=== PATIENT | female | born 1935 | race Caucasian/White ===

== ENCOUNTER 2018-02-15 13:40 | Inpatient (IN) | payer OTHER ==
[~2018-02-15] VITALS: Ht 157.5 cm; Wt 65.9 kg
[2018-02-15 13:45] VITALS: Ht 157.5 cm; Wt 65.9 kg
[2018-02-15 14:55] LABS: UA SPECIFIC GRAVITY 1.015 (1.005-1.035); microscopic required? YES; urine erythrocyte TRACE (NEGATIVE)
[2018-02-15 15:45] LABS: PLATELET COUNT 208 x10^3mcL (130-400); RED CELL DISTRIBUTION WIDTH 13.2 % (11.5-14.5)
[2018-02-15 15:46] LABS: BASOPHIL % 0 % (0-2)
[2018-02-15 16:01] LABS: CK-MB 17.1 ng/mL (0-3.6)
[2018-02-15 16:24] LABS: GLUCOSE SERUM 56 mg/dL (74-106)
[2018-02-15 16:27] LABS: ALBUMIN 3.6 g/dL (3.4-5.0); ALKALINE PHOSPHATASE 57 U/L (46-116); ALT/SGPT 32 U/L (14-59); AST/SGOT 53 U/L (15-37); BILIRUBIN TOTAL 0.46 mg/dL (0.20-1.00); CALCIUM 10.1 mg/dL (8.5-10.1); CARBON DIOXIDE 31.7 mmol/L (21-32); CHLORIDE SERUM 97 mmol/L (98-107); CREATININE SERUM 1.2 mg/dL (0.6-1.0); POTASSIUM SERUM 3.8 mmol/L (3.5-5.1); SODIUM SERUM 127 mmol/L (136-145); TOTAL PROTEIN, SERUM 7.3 g/dL (6.4-8.2)
[2018-02-15] MEDS ORDERED: TRAMADOL HCL50 MG (16:55)
[2018-02-15] MEDS ORDERED: FUROSEMIDE20 MG PO (16:55)
[2018-02-15] MEDS ORDERED: TOPROL XL25 MG (16:56)
[2018-02-15] MEDS ORDERED: HYDROCHLOROTH12.5 M2 PO (16:56)
[2018-02-15] MEDS ORDERED: ALTACE10 MG PO (16:56)
[2018-02-15] MEDS ORDERED: PREDNISONE20 MG (16:57)
[2018-02-15] MEDS ORDERED: NOVOLOG MI10 U/0.11 SQ (16:58)
[2018-02-15] MEDS ORDERED: GABAPENTIN100 M2 PO (16:58)
[2018-02-15 17:29] LABS: MAGNESIUM 1.9 mg/dL (1.8-2.4); PHOSPHOROUS 3.9 mg/dL (2.5-4.9)
[2018-02-15 17:30] LABS: CHOLESTEROL/HDL RATIO 2.6
[2018-02-15 17:36] LABS: T3 TOTAL 0.84 ng/mL
[2018-02-15 17:38] LABS: FREE T4 0.94 ng/dL (0.76-1.46); T4(THYROXINE) 5.8 ug/dL (4.7-13.3)
[2018-02-15 18:13] VITALS: BP 131/70
[2018-02-15 21:17] VITALS: BP 119/63
[2018-02-16 05:13] VITALS: BP 111/65
[2018-02-16 06:50] LABS: CALCIUM 8.7 mg/dL (8.5-10.1); CARBON DIOXIDE 28.3 mmol/L (21-32); CHLORIDE SERUM 103 mmol/L (98-107); GLUCOSE SERUM 150 mg/dL (74-106); POTASSIUM SERUM 3.8 mmol/L (3.5-5.1); SODIUM SERUM 137 mmol/L (136-145)
[2018-02-16 06:56] LABS: BASOPHIL % 0.4 % (0-2); PLATELET COUNT 147 x10^3mcL (130-400); RED CELL DISTRIBUTION WIDTH 13.4 % (11.5-14.5)
[2018-02-16 09:07] VITALS: BP 101/56
[2018-02-16 13:04] VITALS: BP 120/44
[2018-02-16 17:24] VITALS: BP 127/78
[2018-02-16 20:43] VITALS: BP 109/63
[2018-02-17 05:10] VITALS: BP 133/57
[2018-02-17 06:07] LABS: CALCIUM 8.8 mg/dL (8.5-10.1); CARBON DIOXIDE 29.3 mmol/L (21-32); CHLORIDE SERUM 106 mmol/L (98-107); CREATININE SERUM 0.9 mg/dL (0.6-1.0); GLUCOSE SERUM 145 mg/dL (74-106); POTASSIUM SERUM 4.1 mmol/L (3.5-5.1); SODIUM SERUM 139 mmol/L (136-145)
[2018-02-17 06:20] LABS: BASOPHIL % 0.3 % (0-2); PLATELET COUNT 152 x10^3mcL (130-400); RED CELL DISTRIBUTION WIDTH 13.4 % (11.5-14.5)
[2018-02-17 09:00] VITALS: BP 132/63
[2018-02-17 12:54] VITALS: BP 123/81
== END 2018-02-17 16:55 | disposition home or self-care (01) | DRG 682 ==
LOC: ED 13:40 → DU 16:49
PROVIDERS: Emergency Medicine; Family Medicine
DX: N17.0 Acute kidney failure with tubular necrosis (principal); G93.41 Metabolic encephalopathy; M62.82 Rhabdomyolysis; E87.2 Acidosis; E87.1 Hypo-osmolality and hyponatremia; G90.8 Other disorders of autonomic nervous system; E11.649 Type 2 diabetes mellitus with hypoglycemia without coma; M19.90 Unspecified osteoarthritis, unspecified site; I10 Essential (primary) hypertension; R68.0 Hypothermia, not associated with low environmental temperature; Z53.29 Procedure and treatment not carried out because of patient's decision for other reasons; S09.90XA Unspecified injury of head, initial encounter; W19.XXXA Unspecified fall, initial encounter; E86.0 Dehydration; K44.9 Diaphragmatic hernia without obstruction or gangrene; R31.9 Hematuria, unspecified; Z79.4 Long term (current) use of insulin; Z79.899 Other long term (current) drug therapy; Z88.0 Allergy status to penicillin; Z88.2 Allergy status to sulfonamides; Y93.89 Activity, other specified; Y92.89 Other specified places as the place of occurrence of the external cause; Y99.8 Other external cause status
CPT/HCPCS: 82962; 83880; 84439; 97110-GP; 97116-GP; 97530-GP; 97535-GP; J1956; J3480; J3490; J7030; J7042; J7506; Q0092

== ENCOUNTER 2018-04-30 11:31 | Emergency (ER) | payer OTHER ==
[~2018-04-30] VITALS: Ht 154.9 cm; Wt 58.7 kg
[~2018-04-30 11:31] MED LIST: ALTACE10 MG PO; FUROSEMIDE20 MG PO; GABAPENTIN100 M2 PO; HYDROCHLOROTH12.5 M2 PO; NOVOLOG MI10 U/0.11 SQ; PREDNISONE20 MG; TOPROL XL25 MG; TRAMADOL HCL50 MG
[2018-04-30 11:56] VITALS: Ht 154.9 cm; Wt 58.7 kg
[2018-04-30 14:16] VITALS: BP 122/60
== END 2018-04-30 14:16 | disposition home or self-care (01) ==
LOC: ED 11:31
DX: S09.90XA Unspecified injury of head, initial encounter (principal); I10 Essential (primary) hypertension; E11.9 Type 2 diabetes mellitus without complications; Z90.710 Acquired absence of both cervix and uterus; W22.8XXA Striking against or struck by other objects, initial encounter; Y93.89 Activity, other specified; Y92.89 Other specified places as the place of occurrence of the external cause; Y99.8 Other external cause status
CPT/HCPCS: Q0162

== ENCOUNTER 2018-06-13 17:50 | Inpatient (IN) | payer OTHER ==
[~2018-06-13] VITALS: Ht 160 cm; Wt 59.9 kg
[2018-06-13 18:03] VITALS: Ht 160 cm; Wt 59.9 kg
[2018-06-13 19:10] LABS: BASOPHIL % 0.3 % (0-2); PLATELET COUNT 193 x10^3mcL (130-400); RED CELL DISTRIBUTION WIDTH 13.2 % (11.5-14.5)
[2018-06-13 19:19] LABS: CALCIUM 10.2 mg/dL (8.5-10.1); CARBON DIOXIDE 26.3 mmol/L (21-32); CHLORIDE SERUM 101 mmol/L (98-107); CREATININE SERUM 0.9 mg/dL (0.6-1.0); GLUCOSE SERUM 187 mg/dL (74-106); POTASSIUM SERUM 4.3 mmol/L (3.5-5.1); SODIUM SERUM 137 mmol/L (136-145)
[2018-06-13 19:23] LABS: ALBUMIN 3.5 g/dL (3.4-5.0); ALKALINE PHOSPHATASE 111 U/L (46-116); ALT/SGPT 22 U/L (14-59); AST/SGOT 17 U/L (15-37); BILIRUBIN TOTAL 0.5 mg/dL (0.20-1.00); TOTAL PROTEIN, SERUM 6.8 g/dL (6.4-8.2)
[2018-06-13 20:03] LABS: microscopic required? YES; urine erythrocyte NEGATIVE (NEGATIVE)
[2018-06-13] MEDS ORDERED: HYDROCHLOROTH12.5 M2 PO ×2 (20:06→22:41)
[2018-06-13] MEDS ORDERED: POTASSIUM CHLO10 MEQ (20:06)
[2018-06-13] MEDS ORDERED: ALTACE10 MG PO (20:07)
[2018-06-13] MEDS ORDERED: CLINDAMYCIN HC150 MG PO (20:07)
[2018-06-13] MEDS ORDERED: NAPROXEN250 MG PO (20:08)
[2018-06-13] MEDS ORDERED: PROCHLORPERAZIN10 MG PO (20:08)
[2018-06-13] MEDS ORDERED: MIRALAX17 GM/Dose (20:10)
[2018-06-13 21:08] VITALS: BP 161/91
[2018-06-13 21:41] LABS: CHOLESTEROL/HDL RATIO 3.1; MAGNESIUM 1.7 mg/dL (1.8-2.4); PHOSPHOROUS 3.8 mg/dL (2.5-4.9)
[2018-06-13 21:45] LABS: T3 TOTAL 1.46 ng/mL
[2018-06-13 21:48] LABS: FREE T4 1.15 ng/dL (0.76-1.46); FREE THYROXINE INDEX 2.7 ug/dL (1.4-4.5); T4(THYROXINE) 7.6 ug/dL (4.7-13.3)
[2018-06-13] MEDS ORDERED: PREDNISONE1 MG PO (22:37)
[2018-06-13] MEDS ORDERED: RAMIPRIL10 M1 PO (22:39)
[2018-06-13] MEDS ORDERED: KLOR-CON M1010 MEQ PO (22:42)
[2018-06-14 00:08] VITALS: BP 145/70
[2018-06-14 03:20] LABS: AMPHETAMINE QUAL UR NONE DETECTED (See below)
[2018-06-14 05:19] VITALS: BP 130/68
[2018-06-14 06:43] LABS: BASOPHIL % 0.2 % (0-2); PLATELET COUNT 159 x10^3mcL (130-400); RED CELL DISTRIBUTION WIDTH 13.2 % (11.5-14.5)
[2018-06-14 07:24] LABS: CALCIUM 9.3 mg/dL (8.5-10.1); CARBON DIOXIDE 29.3 mmol/L (21-32); CHLORIDE SERUM 104 mmol/L (98-107); CREATININE SERUM 0.8 mg/dL (0.6-1.0); GLUCOSE SERUM 127 mg/dL (74-106); MAGNESIUM 1.6 mg/dL (1.8-2.4); SODIUM SERUM 136 mmol/L (136-145)
[2018-06-14 09:10] VITALS: BP 130/63
[2018-06-14 17:16] VITALS: BP 131/66
[2018-06-14 20:43] VITALS: BP 115/70
[2018-06-15 05:46] VITALS: BP 126/67
[2018-06-15 07:32] LABS: BASOPHIL % 0.2 % (0-2); PLATELET COUNT 165 x10^3mcL (130-400); RED CELL DISTRIBUTION WIDTH 12.9 % (11.5-14.5)
[2018-06-15 08:11] LABS: CALCIUM 9.6 mg/dL (8.5-10.1); CARBON DIOXIDE 26.2 mmol/L (21-32); CHLORIDE SERUM 104 mmol/L (98-107); CREATININE SERUM 0.9 mg/dL (0.6-1.0); GLUCOSE SERUM 140 mg/dL (74-106); MAGNESIUM 1.6 mg/dL (1.8-2.4); POTASSIUM SERUM 3.9 mmol/L (3.5-5.1); SODIUM SERUM 137 mmol/L (136-145)
[2018-06-15 09:02] VITALS: BP 110/54
[2018-06-15 16:50] VITALS: BP 131/71
[2018-06-15 20:34] VITALS: BP 126/65
[2018-06-16 05:34] VITALS: BP 124/76
[2018-06-16 06:58] LABS: BASOPHIL % 0.3 % (0-2); PLATELET COUNT 165 x10^3mcL (130-400); RED CELL DISTRIBUTION WIDTH 13.1 % (11.5-14.5)
[2018-06-16 07:26] LABS: CALCIUM 9.7 mg/dL (8.5-10.1); CARBON DIOXIDE 25.2 mmol/L (21-32); CHLORIDE SERUM 105 mmol/L (98-107); CREATININE SERUM 0.8 mg/dL (0.6-1.0); GLUCOSE SERUM 138 mg/dL (74-106); MAGNESIUM 1.6 mg/dL (1.8-2.4); PHOSPHOROUS 3.9 mg/dL (2.5-4.9); POTASSIUM SERUM 4.1 mmol/L (3.5-5.1); SODIUM SERUM 138 mmol/L (136-145)
[2018-06-16 09:38] VITALS: BP 140/73
[2018-06-16] MEDS ORDERED: IBU800 M2 PO (13:31)
[2018-06-16 13:51] VITALS: BP 140/73
== END 2018-06-16 15:10 | disposition home or self-care (01) | DRG 551 ==
LOC: ED 17:50 → MU 20:08
PROVIDERS: Emergency Medicine; Internal Medicine
DX: M47.896 Other spondylosis, lumbar region (principal); N17.0 Acute kidney failure with tubular necrosis; D68.69 Other thrombophilia; N10 Acute pyelonephritis; E11.65 Type 2 diabetes mellitus with hyperglycemia; K59.00 Constipation, unspecified; E83.42 Hypomagnesemia; E02 Subclinical iodine-deficiency hypothyroidism; E83.52 Hypercalcemia; M32.9 Systemic lupus erythematosus, unspecified; Z96.643 Presence of artificial hip joint, bilateral; Z68.26 Body mass index [BMI] 26.0-26.9, adult
CPT/HCPCS: 82962; 84439; 92610; 97110-GP; 97116-GP; 97530-GP; J1956; J2270; J3010; J7030; J7050; J7506; Q0092